=== PATIENT | male | born 1930 | race Caucasian/White ===

== ENCOUNTER 2020-04-01 04:18 | Inpatient (IN) ==
[2020-04-01] MEDS ORDERED: SODIUM CHLORIDE 0.9% 500 ML IV STA ×2 (04:32→05:58)
[2020-04-01] MEDS ORDERED: ONDANSETRON 4 MG/2 ML VIAL IV STA (04:32)
[2020-04-01 04:41] LABS: Basophils % 0.7 % (0.0-0.8); Eosinophils # 0.1 10*3/uL (0.0-0.87); Eosinophils % 1.1 % (0.00-10.9); Hematocrit 30.9 VOL% (42.0-52.0); Immature Granulocytes % 0.4 %; Immature Granulocytes Absolute 0.02 #; Lymphocytes # 1.1 10*3/uL (1.4-4.0); Lymphocytes % 24.9 % (21.2-54.2); Mean Corpuscular HGB Conc 32.4 GM/DL (32-36); Mean Corpuscular Volume 97.8 FL (87-102); Mean Platelet Volume 9.2 FL (9.6-12.0); Monocytes % 9.9 % (1.7-12.7); Platelet Count 178 T/CUMM (130-400); Red Blood Count 3.16 MC/CUMM (3.8-5.5); Red Cell Distribution Width 14.6 % (9.3-17.3); White Blood Count 4.5 T/CUMM (4-12)
[2020-04-01 04:57] LABS: PT Patient Result 10.3 SECS (9.8-11.9)
[2020-04-01 05:07] LABS: Albumin 2.9 G/DL (3.4-5.0); Bilirubin,Total 0.5 MG/DL (0.2-1.0); Osmolality,Calculated 285.4 MOS/KG (273-304); Potassium 3.9 MMOL/L (3.5-5.1)
[2020-04-01 05:33] LABS: CKMB % 0.6 %; Troponin I 0.022 NG/ML (0.00-0.045)
[2020-04-01 05:45] LABS: Bacteria,Urine Occasional /HPF (Few); Bilirubin,Urine Negative (Negative); Blood, Urine Large mg/dL (Negative); Glucose,Urine (UA) Negative (Negative); Ketones,Urine Negative (Negative); Mucus,Urine Occasional /LPF (Occasional); Nitrite,Urine Negative (Negative); Protein,Urine 30 MG/DL; RBC,Urine 1 /HPF (0-4); Urine Appearance CLEAR (Clear); Urine Color Yellow (Yellow); Urine Specific Gravity 1.014 (1.001-1.035); Urine Urobilinogen < 2.0 EU/DL (0.2-1.0); WBC,Urine <1 /HPF (0-6)
[2020-04-01] MEDS ORDERED: MORPHINE 4 MG/1 ML VIAL IV PRN (05:57)
[2020-04-01] MEDS ORDERED: GLUCAGON 1 MG VIAL IM PRN (05:57)
[2020-04-01] MEDS ORDERED: DEXTROSE 50% 25 GM/50 ML VIAL IV PRN (05:57)
[2020-04-01] MEDS ORDERED: ONDANSETRON 4 MG/2 ML VIAL IV PRN (05:57)
[2020-04-01] MEDS ORDERED: DEXTROSE 50% 25 GM/50 ML VIAL IV STA (05:58)
[2020-04-01] MEDS ORDERED: DEXTROSE 50% 25 GM/50 ML SYRINGE IV ONE (06:00)
[2020-04-01] MEDS: INSULIN REGULAR 100 UNIT/ML SUBCUT SCH ×4 (07:51→23:32)
[2020-04-01] MEDS: carvediloL 3.125 MG TABLET PO SCH ×2 (08:34→17:08)
[2020-04-01] MEDS: SODIUM CHLORIDE 0.9% 1,000 ML IV SCH ×2 (08:58→17:09)
[2020-04-01] MEDS: PANTOPRAZOLE 40 MG TABLET PO SCH (09:44)
[2020-04-01] MEDS: ASPIRIN EC 81 MG TABLET PO SCH (09:44)
[2020-04-01] MEDS: DOCUSATE SODIUM 100 MG CAPSULE PO SCH ×2 (09:44→20:19)
[2020-04-01 10:00] LABS: Troponin I 0.018 NG/ML (0.00-0.045)
[2020-04-01 10:03] LABS: CKMB % 0.6 %
[2020-04-01] MEDS: BICALUTAMIDE 50 MG TABLET PO SCH (10:36)
[2020-04-01] MEDS: LOSARTAN 25 MG TABLET PO SCH (10:36)
[2020-04-01] MEDS: TAMSULOSIN 0.4 MG CAPSULE PO SCH (10:36)
[2020-04-01] MEDS: CALCIUM (CARBONATE) 500 MG TABLET PO SCH (10:36)
[2020-04-01] MEDS: CHOLECALCIFEROL 1,000 UNIT TABLET PO SCH (10:36)
[2020-04-01] MEDS: OMEGA 3 ACID ETHYL ESTERS 1 GM CAPSULE PO SCH ×2 (10:39→20:19)
[2020-04-01] MEDS: SODIUM BICARB INJ 100 MEQ in DEXTROSE 5% NACL 0.22% 1,000 ML IV SCH (19:12)
[2020-04-01] MEDS ORDERED: INSULIN GLARGINE 100 UNIT/ML SUBCUT SCH (21:00)
[2020-04-02 05:53] LABS: Basophils % 0.8 % (0.0-0.8); Eosinophils # 0.1 10*3/uL (0.0-0.87); Eosinophils % 2.5 % (0.00-10.9); Hematocrit 26.9 VOL% (42.0-52.0); Hemoglobin 8.9 GM/DL (14.0-18.0); Immature Granulocytes % 0.6 %; Immature Granulocytes Absolute 0.02 #; Lymphocytes # 1.3 10*3/uL (1.4-4.0); Lymphocytes % 36.2 % (21.2-54.2); Mean Corpuscular HGB Conc 33.1 GM/DL (32-36); Mean Corpuscular Volume 97.8 FL (87-102); Mean Platelet Volume 9.6 FL (9.6-12.0); Monocytes % 13.8 % (1.7-12.7); Neutrophils % 46.1 % (38.7-73.9); Platelet Count 158 T/CUMM (130-400); Red Blood Count 2.75 MC/CUMM (3.8-5.5); Red Cell Distribution Width 14.8 % (9.3-17.3); White Blood Count 3.6 T/CUMM (4-12)
[2020-04-02] MEDS: SODIUM BICARB INJ 100 MEQ in DEXTROSE 5% NACL 0.22% 1,000 ML IV SCH ×2 (05:54→16:07)
[2020-04-02] MEDS: INSULIN REGULAR 100 UNIT/ML SUBCUT SCH ×3 (06:24→17:00)
[2020-04-02 06:35] LABS: Albumin 2.3 G/DL (3.4-5.0); Bilirubin,Total 0.7 MG/DL (0.2-1.0); Calcium 7.5 MG/DL (8.5-10.1); Osmolality,Calculated 288.7 MOS/KG (273-304); Potassium 3.8 MMOL/L (3.5-5.1); Risk Ratio 4.3; Total Protein 5.4 G/DL (6.4-8.3); VLDL CHOLESTEROL 29.2 MG/DL
[2020-04-02 08:33] LABS: CKMB % 0.6 %; Troponin I 0.022 NG/ML (0.00-0.045)
[2020-04-02] MEDS: OMEGA 3 ACID ETHYL ESTERS 1 GM CAPSULE PO SCH ×2 (08:59→20:50)
[2020-04-02] MEDS: TAMSULOSIN 0.4 MG CAPSULE PO SCH (08:59)
[2020-04-02] MEDS: CALCIUM (CARBONATE) 500 MG TABLET PO SCH (08:59)
[2020-04-02] MEDS: BICALUTAMIDE 50 MG TABLET PO SCH (09:00)
[2020-04-02] MEDS: DOCUSATE SODIUM 100 MG CAPSULE PO SCH ×2 (09:00→20:50)
[2020-04-02] MEDS: carvediloL 3.125 MG TABLET PO SCH ×2 (09:00→16:06)
[2020-04-02] MEDS: sitaGLIPtin 25 MG TABLET PO SCH (09:00)
[2020-04-02] MEDS: CHOLECALCIFEROL 1,000 UNIT TABLET PO SCH (09:00)
[2020-04-02] MEDS: LOSARTAN 25 MG TABLET PO SCH (09:00)
[2020-04-02] MEDS: PANTOPRAZOLE 40 MG TABLET PO SCH (09:01)
[2020-04-02] MEDS: ASPIRIN EC 81 MG TABLET PO SCH (09:01)
[2020-04-03] MEDS: INSULIN REGULAR 100 UNIT/ML SUBCUT SCH ×5 (00:35→23:53)
[2020-04-03] MEDS: SODIUM BICARB INJ 100 MEQ in DEXTROSE 5% NACL 0.22% 1,000 ML IV SCH ×3 (02:35→23:45)
[2020-04-03 07:01] LABS: Calcium 7.1 MG/DL (8.5-10.1); Osmolality,Calculated 286.8 MOS/KG (273-304); Potassium 3.3 MMOL/L (3.5-5.1)
[2020-04-03] MEDS ORDERED: POTASSIUM CHLORIDE 20 MEQ TABLET PO ONE (08:30)
[2020-04-03] MEDS: OMEGA 3 ACID ETHYL ESTERS 1 GM CAPSULE PO SCH ×2 (08:43→20:36)
[2020-04-03] MEDS: BICALUTAMIDE 50 MG TABLET PO SCH (08:43)
[2020-04-03] MEDS: CALCIUM (CARBONATE) 500 MG TABLET PO SCH (08:43)
[2020-04-03] MEDS: DOCUSATE SODIUM 100 MG CAPSULE PO SCH ×2 (08:43→20:37)
[2020-04-03] MEDS: sitaGLIPtin 25 MG TABLET PO SCH (08:44)
[2020-04-03] MEDS: TAMSULOSIN 0.4 MG CAPSULE PO SCH (08:44)
[2020-04-03] MEDS: LOSARTAN 25 MG TABLET PO SCH (08:44)
[2020-04-03] MEDS: PANTOPRAZOLE 40 MG TABLET PO SCH (08:44)
[2020-04-03] MEDS: ASPIRIN EC 81 MG TABLET PO SCH (08:44)
[2020-04-03] MEDS: carvediloL 3.125 MG TABLET PO SCH ×2 (08:44→16:47)
[2020-04-03] MEDS: CHOLECALCIFEROL 1,000 UNIT TABLET PO SCH (08:44)
[2020-04-03 08:47] LABS: Alanine Aminotransferase 127 U/L (16-61); Albumin 2.3 G/DL (3.4-5.0); Alkaline Phosphatase 44 U/L (45-117); Aspartate Amino Transferase 238 U/L (0-37); Bilirubin,Direct < 0.100 MG/DL (0.0-0.20); Bilirubin,Indirect 0.4 MG/DL (0.0-1.0); Total Protein 5.2 G/DL (6.4-8.3)
[2020-04-04] MEDS: INSULIN REGULAR 100 UNIT/ML SUBCUT SCH ×4 (05:44→23:34)
[2020-04-04 06:23] LABS: Albumin 2.1 G/DL (3.4-5.0); Bilirubin,Total 0.6 MG/DL (0.2-1.0); Calcium 7.3 MG/DL (8.5-10.1); Osmolality,Calculated 289.6 MOS/KG (273-304); Potassium 3.4 MMOL/L (3.5-5.1); Total Protein 4.9 G/DL (6.4-8.3)
[2020-04-04] MEDS: carvediloL 3.125 MG TABLET PO SCH ×2 (08:41→17:32)
[2020-04-04] MEDS: BICALUTAMIDE 50 MG TABLET PO SCH (08:41)
[2020-04-04] MEDS: DOCUSATE SODIUM 100 MG CAPSULE PO SCH ×2 (08:41→20:02)
[2020-04-04] MEDS: ASPIRIN EC 81 MG TABLET PO SCH (08:41)
[2020-04-04] MEDS: LOSARTAN 25 MG TABLET PO SCH (08:42)
[2020-04-04] MEDS: sitaGLIPtin 25 MG TABLET PO SCH (08:42)
[2020-04-04] MEDS: TAMSULOSIN 0.4 MG CAPSULE PO SCH (08:42)
[2020-04-04] MEDS: POTASSIUM CHLORIDE 20 MEQ TABLET PO SCH (08:42)
[2020-04-04] MEDS: PANTOPRAZOLE 40 MG TABLET PO SCH (08:43)
[2020-04-04] MEDS: OMEGA 3 ACID ETHYL ESTERS 1 GM CAPSULE PO SCH ×2 (08:43→20:02)
[2020-04-04] MEDS: CHOLECALCIFEROL 1,000 UNIT TABLET PO SCH (08:43)
[2020-04-04] MEDS: CALCIUM (CARBONATE) 500 MG TABLET PO SCH (08:43)
[2020-04-04] MEDS: SODIUM BICARB INJ 100 MEQ in DEXTROSE 5% NACL 0.22% 1,000 ML IV SCH ×2 (11:52→21:25)
[2020-04-04] MEDS: ACETAMINOPHEN 325 MG TABLET PO PRN (20:04)
[2020-04-05] MEDS: INSULIN REGULAR 100 UNIT/ML SUBCUT SCH ×3 (06:14→15:07)
[2020-04-05 08:10] LABS: Calcium 7.3 MG/DL (8.5-10.1); Osmolality,Calculated 287.7 MOS/KG (273-304); Potassium 3.9 MMOL/L (3.5-5.1)
[2020-04-05] MEDS: SODIUM BICARB INJ 100 MEQ in DEXTROSE 5% NACL 0.22% 1,000 ML IV SCH ×2 (08:56→20:32)
[2020-04-05] MEDS: carvediloL 3.125 MG TABLET PO SCH ×2 (08:58→17:08)
[2020-04-05] MEDS: ASPIRIN EC 81 MG TABLET PO SCH (08:58)
[2020-04-05] MEDS: BICALUTAMIDE 50 MG TABLET PO SCH (08:58)
[2020-04-05] MEDS: TAMSULOSIN 0.4 MG CAPSULE PO SCH (08:59)
[2020-04-05] MEDS: DOCUSATE SODIUM 100 MG CAPSULE PO SCH ×2 (08:59→20:32)
[2020-04-05] MEDS: LOSARTAN 25 MG TABLET PO SCH (08:59)
[2020-04-05] MEDS: sitaGLIPtin 25 MG TABLET PO SCH (08:59)
[2020-04-05] MEDS: OMEGA 3 ACID ETHYL ESTERS 1 GM CAPSULE PO SCH ×2 (08:59→20:32)
[2020-04-05] MEDS: POTASSIUM CHLORIDE 20 MEQ TABLET PO SCH (08:59)
[2020-04-05] MEDS: CALCIUM (CARBONATE) 500 MG TABLET PO SCH (09:00)
[2020-04-05] MEDS: CHOLECALCIFEROL 1,000 UNIT TABLET PO SCH (09:00)
[2020-04-05] MEDS: PANTOPRAZOLE 40 MG TABLET PO SCH (09:00)
[2020-04-05] MEDS: ACETAMINOPHEN 325 MG TABLET PO PRN (11:55)
[2020-04-06] MEDS: INSULIN REGULAR 100 UNIT/ML SUBCUT SCH ×4 (00:15→17:33)
[2020-04-06 05:51] LABS: Albumin 2.2 G/DL (3.4-5.0); Bilirubin,Direct 0.14 MG/DL (0.0-0.20); Bilirubin,Indirect 0.3 MG/DL (0.0-1.0); Bilirubin,Total 0.4 MG/DL (0.2-1.0); Total Protein 5.1 G/DL (6.4-8.3)
[2020-04-06] MEDS: SODIUM BICARB INJ 100 MEQ in DEXTROSE 5% NACL 0.22% 1,000 ML IV SCH ×2 (06:20→21:30)
[2020-04-06] MEDS: BICALUTAMIDE 50 MG TABLET PO SCH (09:24)
[2020-04-06] MEDS: ASPIRIN EC 81 MG TABLET PO SCH (09:24)
[2020-04-06] MEDS: DOCUSATE SODIUM 100 MG CAPSULE PO SCH ×2 (09:24→21:30)
[2020-04-06] MEDS: carvediloL 3.125 MG TABLET PO SCH ×2 (09:24→17:31)
[2020-04-06] MEDS: sitaGLIPtin 25 MG TABLET PO SCH (09:24)
[2020-04-06] MEDS: LOSARTAN 25 MG TABLET PO SCH (09:24)
[2020-04-06] MEDS: TAMSULOSIN 0.4 MG CAPSULE PO SCH (09:24)
[2020-04-06] MEDS: CALCIUM (CARBONATE) 500 MG TABLET PO SCH (09:25)
[2020-04-06] MEDS: PANTOPRAZOLE 40 MG TABLET PO SCH (09:25)
[2020-04-06] MEDS: CHOLECALCIFEROL 1,000 UNIT TABLET PO SCH (09:25)
[2020-04-06] MEDS: OMEGA 3 ACID ETHYL ESTERS 1 GM CAPSULE PO SCH ×2 (09:25→21:30)
[2020-04-06] MEDS: POTASSIUM CHLORIDE 20 MEQ TABLET PO SCH (09:25)
[2020-04-06] MEDS ORDERED: GLUCAGON 1 MG VIAL IM PRN (13:34)
[2020-04-06] MEDS ORDERED: DEXTROSE 50% 25 GM/50 ML VIAL IV PRN (13:34)
[2020-04-07] MEDS: INSULIN REGULAR 100 UNIT/ML SUBCUT SCH ×4 (00:11→18:12)
[2020-04-07] MEDS: TAMSULOSIN 0.4 MG CAPSULE PO SCH (08:12)
[2020-04-07] MEDS: carvediloL 3.125 MG TABLET PO SCH ×2 (08:12→18:11)
[2020-04-07] MEDS: POTASSIUM CHLORIDE 20 MEQ TABLET PO SCH (08:13)
[2020-04-07] MEDS: CALCIUM (CARBONATE) 500 MG TABLET PO SCH (08:13)
[2020-04-07] MEDS: OMEGA 3 ACID ETHYL ESTERS 1 GM CAPSULE PO SCH ×2 (08:13→21:11)
[2020-04-07] MEDS: CHOLECALCIFEROL 1,000 UNIT TABLET PO SCH (08:13)
[2020-04-07] MEDS: ASPIRIN EC 81 MG TABLET PO SCH (08:13)
[2020-04-07] MEDS: DOCUSATE SODIUM 100 MG CAPSULE PO SCH ×2 (08:13→21:11)
[2020-04-07] MEDS: PANTOPRAZOLE 40 MG TABLET PO SCH (08:13)
[2020-04-07] MEDS: BICALUTAMIDE 50 MG TABLET PO SCH (08:13)
[2020-04-07] MEDS: LOSARTAN 25 MG TABLET PO SCH (08:13)
[2020-04-07] MEDS: sitaGLIPtin 25 MG TABLET PO SCH (08:14)
[2020-04-08] MEDS: INSULIN REGULAR 100 UNIT/ML SUBCUT SCH ×2 (00:28→05:50)
[2020-04-08] MEDS: SODIUM BICARB INJ 100 MEQ in DEXTROSE 5% NACL 0.22% 1,000 ML IV SCH ×3 (00:29→09:43)
[2020-04-08] MEDS: LOSARTAN 25 MG TABLET PO SCH (09:32)
[2020-04-08] MEDS: PANTOPRAZOLE 40 MG TABLET PO SCH (09:32)
[2020-04-08] MEDS: DOCUSATE SODIUM 100 MG CAPSULE PO SCH (09:32)
[2020-04-08] MEDS: ASPIRIN EC 81 MG TABLET PO SCH (09:33)
[2020-04-08] MEDS: BICALUTAMIDE 50 MG TABLET PO SCH (09:33)
[2020-04-08] MEDS: carvediloL 3.125 MG TABLET PO SCH (09:33)
[2020-04-08] MEDS: TAMSULOSIN 0.4 MG CAPSULE PO SCH (09:34)
[2020-04-08] MEDS: sitaGLIPtin 25 MG TABLET PO SCH (09:34)
[2020-04-08] MEDS: CHOLECALCIFEROL 1,000 UNIT TABLET PO SCH (09:35)
[2020-04-08] MEDS: CALCIUM (CARBONATE) 500 MG TABLET PO SCH (09:35)
[2020-04-08] MEDS: POTASSIUM CHLORIDE 20 MEQ TABLET PO SCH (09:38)
[2020-04-08] MEDS: OMEGA 3 ACID ETHYL ESTERS 1 GM CAPSULE PO SCH (09:38)
[2020-04-08 11:22] VITALS: BP 148/82
== END 2020-04-08 12:05 | disposition home health service (06) | DRG 558 ==
LOC: EDBD → EDUNIT# → N.ED 04:18 → N.EDINP 04:18 → N.3E 10:50
PROVIDERS: ADMIT Family Medicine; ATTEND Family Medicine